=== PATIENT | male | born 1950 | race Hispanic/Latino ===

== ENCOUNTER 2017-06-10 16:28 | Outpatient (CLI) | payer OTHER | END 2017-06-10 16:29 | disposition home or self-care (01) | LOC: BICRAD 16:28 | PROVIDERS: ATTEND Family Medicine | DX: R07.1 Chest pain on breathing (principal) ==

== ENCOUNTER 2017-06-27 12:37 | Outpatient (CLI) | payer OTHER, BC | END 2017-06-27 12:38 | disposition home or self-care (01) | LOC: BICCT 12:37 | PROVIDERS: ATTEND Family Medicine | DX: J90 Pleural effusion, not elsewhere classified (principal) | CPT/HCPCS: 71250 ==

== ENCOUNTER 2018-11-05 15:05 | Emergency (ER) | payer OTHER, BC ==
--- NOTE | 2018-11-05 15:53 | RAD ---
EXAM: Right shoulder 3 views: HISTORY: Injury right shoulder COMPARISON: None FINDINGS: Mild degenerative changes. Right A/C separation with widening of the A/C joint as well as the coracoclavicular space. IMPRESSION: Prominent A/C separation as above. No other acute fracture or dislocation.
[2018-11-05] MEDS ORDERED: HYDROcodone/Acetaminophen 10/325 mg Tablet ONE (16:09)
--- NOTE | 2018-11-05 16:49 | CT ---
CT BRAIN WITHOUT CONTRAST: History: Fall from 7 ft ladder. Head trauma. Headache. FINDINGS: No evidence of infarct, hemorrhage, midline shift or abnormal extraaxial fluid collection seen. The v entricular size is appropriate and the basilar cisterns are patent. The bony calvarium is intact. The re is mucosal disease in the paranasal sinuses. IMPRESSION: No CT evidence of acute intracranial process. POS: [facility]
== END 2018-11-05 17:08 | disposition home or self-care (01) ==
LOC: ERS 15:05
DX: S43.101A Unspecified dislocation of right acromioclavicular joint, initial encounter (principal); S00.03XA Contusion of scalp, initial encounter; E03.9 Hypothyroidism, unspecified; Z79.899 Other long term (current) drug therapy; W11.XXXA Fall on and from ladder, initial encounter
CPT/HCPCS: 70450

== ENCOUNTER 2022-04-12 12:26 | Outpatient (CLI) | payer MEDICARE, BC ==
[2022-04-12 13:14] LABS: #Eosinphils 0.1 10x3/uL (0.0-0.5); #Monocytes 0.4 10x3/uL (0.0-1.1); #Neutrophils 3.4 10x3/uL (1.5-8.4); %Basophils 0.2 % (0.0-2.0); %Eosinophils 1.3 % (0.0-6.0); %Lymphocytes 25.4 % (18.0-47.0); %Monocytes 6.9 % (0.0-10.0); %Neutrophils 65.8 % (40.0-75.0); Hemoglobin 14.1 g/dL (13.5-17.5); Mean Corpuscular HGB CONC 34.5 g/dL (32.0-36.0); Mean Corpuscular Hemoglobin 32.6 pg (27.0-33.0); Mean Corpuscular Volume 94.7 fl (81.2-95.1); Mean Platelet Volume 9.6 fl (7.4-10.4); Platelet Count 181 10x3/uL (150-450); RBC Distribution Width 12.4 % (11.5-14.5); Red Blood Cell (RBC) Count 4.32 10x6/uL (4.32-5.72); White Blood Cell (WBC) Count 5.2 10x3/uL (3.5-10.5)
[2022-04-12 13:25] LABS: Anion Gap 14 mmol/L (10-20); BUN (Urea Nitrogen) 17 mg/dL (8.4-25.7); Calc. Creatinine Clearance 0 mL/min (70-130); Calcium 9.2 mg/dL (7.8-10.44); Carbon Dioxide 21 mmol/L (23-31); Chloride 110 mmol/L (98-107); Estimated GFR 86; Glucose 102 mg/dL (80-115); Sodium 141 mmol/L (136-145)
== END 2022-04-12 12:27 | disposition home or self-care (01) ==
LOC: LABBT 12:26
PROVIDERS: ATTEND Surgery
DX: Z01.818 Encounter for other preprocedural examination (principal); K40.90 Unilateral inguinal hernia, without obstruction or gangrene, not specified as recurrent
CPT/HCPCS: 80048; 85025; 93005; 93010

== ENCOUNTER 2022-04-14 10:39 | Day surgery (SDC) | payer MEDICARE, BC ==
[2022-04-13 09:15] VITALS: BMI 26.6
[2022-04-14] MEDS ORDERED: Bupivacaine/Epinephrine 0.25% 30 ML VIAL ONE ×2 (11:58→12:07)
[2022-04-14] MEDS ORDERED: CEFAZOLIN 2 GM VIAL ONE (12:20)
[2022-04-14] MEDS ORDERED: Sodium Chloride 0.9% 100 ML ONE (12:20)
[2022-04-14] MEDS ORDERED: fentaNYL PF 100 MCG/2 ML SYRINGE ONE (12:25)
[2022-04-14] MEDS ORDERED: ePHEDrine 50 MG/ML VIAL ONE (12:31)
[2022-04-14] MEDS ORDERED: Glycopyrrolate 0.2 MG/ML 5 ML SYRINGE ONE (12:31)
[2022-04-14] MEDS ORDERED: PROPOFOL 200 MG/20 ML VIAL ONE (12:31)
[2022-04-14] MEDS ORDERED: NEOSTIGMINE 3 MG/3 ML SYR 3 MG/3 ML SYRINGE ONE (12:31)
[2022-04-14] MEDS ORDERED: Rocuronium Bromide 10 MG/ML (10ML VIAL) ONE (12:31)
[2022-04-14] MEDS ORDERED: Lidocaine 1% PF 5 ML VIAL ONE (12:31)
[2022-04-14] MEDS ORDERED: Dexamethasone 20 MG/5 ML VIAL ONE (12:31)
[2022-04-14] MEDS ORDERED: Ondansetron PF 4 MG/2 ML Vial ONE (12:31)
[2022-04-14] MEDS ORDERED: Fentanyl 100 MCG/2 ML VIAL ONE (14:17)
== END 2022-04-14 16:15 | disposition home or self-care (01) ==
LOC: SDC 10:39
PROVIDERS: ATTEND Surgery
PROC: 0YUA4JZ Supplement Bilateral Inguinal Region with Synthetic Substitute, Percutaneous Endoscopic Approach (ICD-10-PCS; principal; 2022-04-14)
PROC: 8E0W4CZ Robotic Assisted Procedure of Trunk Region, Percutaneous Endoscopic Approach (ICD-10-PCS; 2022-04-14)
DX: K40.20 Bilateral inguinal hernia, without obstruction or gangrene, not specified as recurrent (principal); Z79.82 Long term (current) use of aspirin; Z79.890 Hormone replacement therapy
CPT/HCPCS: 49650; C1781 ×2; J1100; J2405; J2704; J3010; J3490

== ENCOUNTER 2023-02-07 17:21 | Emergency (ER) | payer MEDICARE, BC ==
[~2023-02-07 17:21] MED LIST: Iopamidol-370 76% 500 ML MDV (1 ML CHARGE) ONE
[2023-02-07 18:27] LABS: #Monocytes 0.6 thou/uL (0.11-0.59); #Neutrophils 8.4 thou/uL (1.40-6.50); %Basophils 0.3 % (0.0-1.0); %Eosinophils 0.3 % (0.0-10.0); %Lymphocytes 9.1 % (21.0-51.0); %Monocytes 5.5 % (0.0-10.0); %Neutrophils 84.5 % (42.0-75.0); Hematocrit 44.2 % (42.0-52.0); Hemoglobin 15.4 g/dL (14.0-18.0); Mean Corpuscular HGB CONC 34.8 g/dL (32.0-36.0); Mean Corpuscular Hemoglobin 32.2 pg (27.0-31.0); Mean Corpuscular Volume 92.5 fl (78.0-98.0); Mean Platelet Volume 9.8 fL (7.4-10.4); Platelet Count 216 10x3/uL (130-400); RBC Distribution Width 12.1 % (11.5-14.5); Red Blood Cell (RBC) Count 4.78 mill/uL (4.70-6.10); White Blood Cell (WBC) Count 9.9 10x3/uL (4.8-10.8)
[2023-02-07 19:02] LABS: ALT (SGPT) 21 U/L (8-55); AST (SGOT) 24 U/L (5-34); Albumin 4.6 g/dL (3.4-4.8); Alkaline Phosphatase 80 U/L (40-110); Anion Gap 15 mmol/L (10-20); BUN (Urea Nitrogen) 18 mg/dL (8.4-25.7); Bilirubin, Total 0.8 mg/dL (0.2-1.2); Calc. Creatinine Clearance 0 mL/min (70-130); Calcium 9.6 mg/dL (7.8-10.44); Carbon Dioxide 24 mmol/L (23-31); Chloride 106 mmol/L (98-107); Estimated GFR 71; Globulin 3.1 g/dL (2.4-3.5); Glucose 99 mg/dL (83-110); Potassium 4.7 mmol/L (3.5-5.1); Protein, Total 7.7 g/dL (5.8-8.1); Sodium 140 mmol/L (136-145)
[2023-02-07 21:29] LABS: Bacteria/HPF None Seen HPF (None Seen); Bilirubin Negative (Negative); Blood, Urine Negative (Negative); CAUTI Indications for Culture Pelvic or flank pain; Clarity Clear (Clear); Glucose, Urine (Dipstick) Normal (Negative); Ketone, Urine 20 mg/dL (Negative); Leukocyte Negative Leu/uL (Negative); Nitrite Negative (Negative); Protein, Urine (Dipstick) Negative (Neg-Trace); RBC/HPF 0-3 HPF (0-3); Squamous Epithelial 0-3 HPF (0-3); Urobilinogen Normal mg/dL (Less than 2); WBC/HPF 0-3 HPF (0-3); pH, Urine 6.5 (5.0-9.0)
[2023-02-07 21:30] LABS: Urine Culture Reflex No No
[2023-02-07] MEDS ORDERED: Dicyclomine 20 MG/2 ML VIAL ONE (21:48)
== END 2023-02-07 22:25 | disposition home or self-care (01) ==
LOC: ERS 17:21
DX: K59.00 Constipation, unspecified (principal); E03.9 Hypothyroidism, unspecified; Z79.890 Hormone replacement therapy
CPT/HCPCS: 36415; 74177; 80053; 81001; 85025; 96372; Q9967